=== PATIENT | female | born 1965 | race Caucasian/White ===

== ENCOUNTER 2017-06-11 11:57 | Outpatient (RCR) | payer BC, SELFPAY ==
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
--- NOTE | 2017-06-11 14:03 | HP.OTFCE.D ---
FCE D/C Summary - Discharge JANELLE WILSON was seen for a one time visit for an FCE on 06/11/17 and is discharged.
== END 2017-06-11 19:00 | disposition home or self-care (01) ==
LOC: OT 11:57
PROVIDERS: Family Provider Student in an Organized Health Care Education/Training Program; PCP Student in an Organized Health Care Education/Training Program; Visit Provider Student in an Organized Health Care Education/Training Program
DX: M54.2 Cervicalgia (principal); M25.512 Pain in left shoulder; M25.511 Pain in right shoulder; M79.673 Pain in unspecified foot; G89.29 Other chronic pain
CPT/HCPCS: 97750

== ENCOUNTER → 2020-01-31 | Outpatient (CLI) | payer OTHER, SELFPAY ==
[2020-01-31 14:08] VITALS: BMI 31.8
[2020-02-07 15:06] LABS: HPV APTIMA, High Risk Negative (Negative)
== END | disposition home or self-care (01) ==
LOC: LABSPEC 16:32
PROVIDERS: PCP Student in an Organized Health Care Education/Training Program; Visit Provider Nurse Practitioner Women's Health
DX: Z12.4 Encounter for screening for malignant neoplasm of cervix (principal)
CPT/HCPCS: 87624; 88175; G0145

== ENCOUNTER → 2023-04-14 | Outpatient (CLI) | payer BC, SELFPAY ==
--- OUTSIDE RECORDS SUMMARY | 2023-04-14 17:12 | XMS RPT_ITS | CCD ---
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 little tired after last session.Notes that she feels that the hip exs was helpful. Wearing shoes no problem and just tired with daily activities and ankle still swells Pain: Pain Pain Level: 3 Pain Location: Ankle - Left;Foot - Left Description: Aching Frequency: Intermittent Post Treatment Pain Post Treatment Pain Level: No Change Post Treatment Pain Location: Ankle - Left;Foot - Left OBJECTIVE MEASURES WITH LEVEL OF FUNCTION: Gait Gait Deviations Left Lower Extremity: (hip adduction slightly with decreased stance at times) TREATMENT: Therapeutic Exercise: 4: AROM all planes 5: BAPS standing PWB hemis 2 CW and CCW 2x10 with cues for form and control 6: green rep band strengthening AF/PF/ inv/ever 2x10 7: sidelying left hip abduction 1x5 for hip weakness Skilled Intervention: Patient was educated in proper exercise technique and purpose for exercises. Skilled judgment was provided in selection of appropriate interventions. Correct performance of therapeutic exercises was facilitated with verbal and visual cuing. Neuromuscular Re-Education: 1: balance board for anterior posterior 2x15 and balance with some UE assist 2: alternate step taps to BOSU 2x15 3: step up to blue step 2x10 Skilled Intervention: Skilled judgment used to assess appropriate program for balance and coordination activity. Education in proprioceptive/kinesthetic awareness during dynamic activities. Insured patient safety with use of gait belt Billing Therapeutic Exercise Treatment Minutes: 15 Neuromuscular Re-Education Treatment Minutes: 20 Total Treatment Time Minutes (timed and untimed codes) : 35 Merle Edwards PT documented in this encounter [facility] 12-20-2020 Miscellaneous Notes The following approved medication requests have been transmitted electronically. Signed Prescriptions Disp Refills FLUoxetine 60 mg tab 45 tablet 3 Sig: Take 1.5 tablets by mouth once daily. KISHAN: No Authorizing Provider: ASAD EDWARDS Ordering User: MARYELLEN SUÁREZ APRN.CNP Phone call placed, patient agreeable to Medication change Fluoxetine 90 mg. Mary Orellana LPN Did I discuss this with her at our appointment in November, to increase it? I possibly could have missed this. There is not an 80mg of fluoxetine, but is a 90mg. If she would like to increase to the 90mg, I am fine with sending those in. Maryellen Suárez APRN.CNP Phone call placed to update recent lab results. Patient had concerns new Rx Fluoxetine 60 mg sent to listed pharmacy, patients understanding the Fluoxetine should have been 80 mg , please advise. Mary Orellana LPN documented in this encounter [facility] documented as of this encounter (statuses as of 09/02/2021) [facility] History of Past illness Narrative* Problem Noted Date Resolved Date Neck pain 08/10/2019 08/28/2021 Acute pain of both shoulders 08/10/2019 Iron deficiency 07/08/2012 10/24/2015 documented as of this encounter (statuses as of 09/16/2021) [address] History of Past illness Narrative* Problem Noted Date Resolved Date Neck pain 08/10/2019 08/28/2021 Acute pain of both shoulders 08/10/2019 Iron deficiency 07/08/2012 10/24/2015 documented as of this encounter (statuses as of 09/17/2021) [address]2020 History of Past illness Narrative* Problem Noted Date Resolved Date Neck pain 08/10/2019 08/28/2021 Acute pain of both shoulders 08/10/2019 Iron deficiency 07/08/2012 10/24/2015 documented as of this encounter (statuses as of 10/02/2021) [address]2020 History of Past illness Narrative* Problem Noted Date Resolved Date Neck pain 08/10/2019 08/28/2021 Acute pain of both shoulders 08/10/2019 Iron deficiency 07/08/2012 10/24/2015 documented as of this encounter (statuses as of 10/06/2021) [address]2020 History of Past illness Narrative* Problem Noted Date Resolved Date Neck pain 08/10/2019 08/28/2021 Acute pain of both shoulders 08/10/2019 Iron deficiency 07/08/2012 10/24/2015 documented as of this encounter (statuses as of 10/17/2021) [address]2020 History of Past illness Narrative* Problem Noted Date Resolved Date Neck pain 08/10/2019 08/28/2021 Acute pain of both shoulders 08/10/2019 Iron deficiency 07/08/2012 10/24/2015 documented as of this encounter (statuses as of 10/17/2021) [address]2020 History of Past illness Narrative* Problem Noted Date Resolved Date Neck pain 08/10/2019 08/28/2021 Acute pain of both shoulders 08/10/2019 Iron deficiency 07/08/2012 10/24/2015 documented as of this encounter (statuses as of 10/17/2021) [address]2020 History of Past illness Narrative* Problem Noted Date Resolved Date Neck pain 08/10/2019 08/28/2021 Acute pain of both shoulders 08/10/2019 Iron deficiency 07/08/2012 10/24/2015 documented as of this encounter (statuses as of 10/17/2021) [address]2020 History of Past illness Narrative* Problem Noted Date Resolved Date Neck pain 08/10/2019 08/28/2021 Acute pain of both shoulders 08/10/2019 Iron deficiency 07/08/2012 10/24/2015 documented as of this encounter (statuses as of 10/17/2021) [address]2020 History of Past illness Narrative* Problem Noted Date Resolved Date Neck pain 08/10/2019 08/28/2021 Acute pain of both shoulders 08/10/2019 Iron deficiency 07/08/2012 10/24/2015 documented as of this encounter (statuses as of 11/13/2021) [address]2020 History of Past illness Narrative* Problem Noted Date Resolved Date Neck pain 08/10/2019 08/28/2021 Acute pain of both shoulders 08/10/2019 Iron deficiency 07/08/2012 10/24/2015 documented as of this encounter (statuses as of 12/08/2021) [address]2020 History of Past illness Narrative* Problem Noted Date Resolved Date Neck pain 08/10/2019 08/28/2021 Acute pain of both shoulders 08/10/2019 Iron deficiency 07/08/2012 10/24/2015 documented as of this encounter (statuses as of 12/10/2021) [address]2020 History of Past illness Narrative* Problem Noted Date Resolved Date Neck pain 08/10/2019 08/28/2021 Acute pain of both shoulders 08/10/2019 Iron deficiency 07/08/2012 10/24/2015 documented as of this encounter (statuses as of 12/19/2021) [address]2020 History of Past illness Narrative* Problem Noted Date Resolved Date Neck pain 08/10/2019 08/28/2021 Acute pain of both shoulders 08/10/2019 Iron deficiency 07/08/2012 10/24/2015 documented as of this encounter (statuses as of 01/10/2022) [address]2020 History of Past illness Narrative* Problem Noted Date Resolved Date Neck pain 08/10/2019 08/28/2021 Acute pain of both shoulders 08/10/2019 Iron deficiency 07/08/2012 10/24/2015 documented as of this encounter (statuses as of 01/20/2022) [address]2020 History of Past illness Narrative* Problem Noted Date Resolved Date Neck pain 08/10/2019 08/28/2021 Acute pain of both shoulders 08/10/2019 Iron deficiency 07/08/2012 10/24/2015 documented as of this encounter (statuses as of 01/23/2022) [address]2020 History of Past illness Narrative* Problem Noted Date Resolved Date Neck pain 08/10/2019 08/28/2021 Acute pain of both shoulders 08/10/2019 Iron deficiency 07/08/2012 10/24/2015 documented as of this encounter (statuses as of 01/29/2022) [address]2020 History of Past illness Narrative* Problem Noted Date Resolved Date Neck pain 08/10/2019 08/28/2021 Acute pain of both shoulders 08/10/2019 Iron deficiency 07/08/2012 10/24/2015 documented as of this encounter (statuses as of 02/03/2022) [address]2020 History of Past illness Narrative* Problem Noted Date Resolved Date Neck pain 08/10/2019 08/28/2021 Acute pain of both shoulders 08/10/2019 Iron deficiency 07/08/2012 10/24/2015 documented as of this encounter (statuses as of 02/12/2022) [address]2020 History of Past illness Narrative* Problem Noted Date Resolved Date Neck pain 08/10/2019 08/28/2021 Acute pain of both shoulders 08/10/2019 Iron deficiency 07/08/2012 10/24/2015 documented as of this encounter (statuses as of 02/13/2022) [address]2020 History of Past illness Narrative* Problem Noted Date Resolved Date Neck pain 08/10/2019 08/28/2021 Acute pain of both shoulders 08/10/2019 Iron deficiency 07/08/2012 10/24/2015 documented as of this encounter (statuses as of 03/02/2022) [address]2020 History of Past illness Narrative* Problem Noted Date Resolved Date Neck pain 08/10/2019 08/28/2021 Acute pain of both shoulders 08/10/2019 Iron deficiency 07/08/2012 10/24/2015 documented as of this encounter (statuses as of 03/03/2022) [address]2020 History of Past illness Narrative* Problem Noted Date Resolved Date Neck pain 08/10/2019 08/28/2021 Acute pain of both shoulders 08/10/2019 Iron deficiency 07/08/2012 10/24/2015 documented as of this encounter (statuses as of 03/03/2022) [address]2020 History of Past illness Narrative* Problem Noted Date Resolved Date Neck pain 08/10/2019 08/28/2021 Acute pain of both shoulders 08/10/2019 Iron deficiency 07/08/2012 10/24/2015 documented as of this encounter (statuses as of 03/25/2022) [address]2020 History of Past illness Narrative* Problem Noted Date Resolved Date Neck pain 08/10/2019 08/28/2021 Acute pain of both shoulders 08/10/2019 Iron deficiency 07/08/2012 10/24/2015 documented as of this encounter (statuses as of 05/02/2022) [address] History of Past illness Narrative* Problem Noted Date Resolved Date Neck pain 08/10/2019 08/28/2021 Acute pain of both shoulders 08/10/2019 Iron deficiency 07/08/2012 10/24/2015 documented as of this encounter (statuses as of 05/05/2022) [address]2020 History of Past illness Narrative* Problem Noted Date Resolved Date Neck pain 08/10/2019 08/28/2021 Acute pain of both shoulders 08/10/2019 Iron deficiency 07/08/2012 10/24/2015 documented as of this encounter (statuses as of 05/25/2022) [address]2020 History of Past illness Narrative* Problem Noted Date Resolved Date Neck pain 08/10/2019 08/28/2021 Acute pain of both shoulders 08/10/2019 Iron deficiency 07/08/2012 10/24/2015 documented as of this encounter (statuses as of 05/25/2022) [address]2020 History of Past illness Narrative* Problem Noted Date Resolved Date Neck pain 08/10/2019 08/28/2021 Acute pain of both shoulders 08/10/2019 Iron deficiency 07/08/2012 10/24/2015 documented as of this encounter (statuses as of 05/25/2022) [address]2020 History of Past illness Narrative* Problem Noted Date Resolved Date Neck pain 08/10/2019 08/28/2021 Acute pain of both shoulders 08/10/2019 Iron deficiency 07/08/2012 10/24/2015 documented as of this encounter (statuses as of 06/02/2022) [address]2020 History of Past illness Narrative* Problem Noted Date Resolved Date Neck pain 08/10/2019 08/28/2021 Acute pain of both shoulders 08/10/2019 Iron deficiency 07/08/2012 10/24/2015 documented as of this encounter (statuses as of 06/03/2022) [address]2020 History of Past illness Narrative* Problem Noted Date Resolved Date Neck pain 08/10/2019 08/28/2021 Acute pain of both shoulders 08/10/2019 Iron deficiency 07/08/2012 10/24/2015 documented as of this encounter (statuses as of 06/03/2022) [address]2020 History of Past illness Narrative* Problem Noted Date Resolved Date Neck pain 08/10/2019 08/28/2021 Acute pain of both shoulders 08/10/2019 Iron deficiency 07/08/2012 10/24/2015 documented as of this encounter (statuses as of 06/05/2022) [address]2020 History of Past illness Narrative* Problem Noted Date Resolved Date Neck pain 08/10/2019 08/28/2021 Acute pain of both shoulders 08/10/2019 Iron deficiency 07/08/2012 10/24/2015 documented as of this encounter (statuses as of 06/08/2022) [address]2020 History of Past illness Narrative* Problem Noted Date Resolved Date Neck pain 08/10/2019 08/28/2021 Acute pain of both shoulders 08/10/2019 Iron deficiency 07/08/2012 10/24/2015 documented as of this encounter (statuses as of 06/12/2022) [address]2020 History of Past illness Narrative* Problem Noted Date Resolved Date Neck pain 08/10/2019 08/28/2021 Acute pain of both shoulders 08/10/2019 Iron deficiency 07/08/2012 10/24/2015 documented as of this encounter (statuses as of 07/10/2022) [address]2020 History of Past illness Narrative* Problem Noted Date Resolved Date Neck pain 08/10/2019 08/28/2021 Acute pain of both shoulders 08/10/2019 Iron deficiency 07/08/2012 10/24/2015 documented as of this encounter (statuses as of 07/14/2022) [address]2020 History of Past illness Narrative* Problem Noted Date Resolved Date Neck pain 08/10/2019 08/28/2021 Acute pain of both shoulders 08/10/2019 Iron deficiency 07/08/2012 10/24/2015 documented as of this encounter (statuses as of 08/04/2022) [address]2020 History of Past illness Narrative* Problem Noted Date Resolved Date Neck pain 08/10/2019 08/28/2021 Acute pain of both shoulders 08/10/2019 Iron deficiency 07/08/2012 10/24/2015 documented as of this encounter (statuses as of 08/11/2022) [address]2020 History of Past illness Narrative* Problem Noted Date Resolved Date Neck pain 08/10/2019 08/28/2021 Acute pain of both shoulders 08/10/2019 Iron deficiency 07/08/2012 10/24/2015 documented as of this encounter (statuses as of 09/28/2022) [address]2020 History of Past illness Narrative* Problem Noted Date Resolved Date Neck pain 08/10/2019 08/28/2021 Acute pain of both shoulders 08/10/2019 Iron deficiency 07/08/2012 10/24/2015 documented as of this encounter (statuses as of 10/02/2022) [address]2020 History of Past illness Narrative* Problem Noted Date Diagnosed Date Resolved Date Neck pain 08/10/2019 08/28/2021 Acute pain of both shoulders 08/10/2019 08/28/2021 Iron deficiency 07/08/2012 10/24/2015 documented as of this encounter (statuses as of 10/28/2022) [address]2020 History of Past illness Narrative* Problem Noted Date Diagnosed Date Resolved Date Neck pain 08/10/2019 08/28/2021 Acute pain of both shoulders 08/10/2019 08/28/2021 Iron deficiency 07/08/2012 10/24/2015 documented as of this encounter (statuses as of 11/05/2022) [address]2020 History of Past illness Narrative* Problem Noted Date Diagnosed Date Resolved Date Neck pain 08/10/2019 08/28/2021 Acute pain of both shoulders 08/10/2019 08/28/2021 Iron deficiency 07/08/2012 10/24/2015 documented as of this encounter (statuses as of 11/07/2022) [address]2020 History of Past illness Narrative* Problem Noted Date Diagnosed Date Resolved Date Neck pain 08/10/2019 08/28/2021 Acute pain of both shoulders 08/10/2019 08/28/2021 Iron deficiency 07/08/2012 10/24/2015 documented as of this encounter (statuses as of 11/09/2022) [address]2020 History of Past illness Narrative* Problem Noted Date Diagnosed Date Resolved Date Neck pain 08/10/2019 08/28/2021 Acute pain of both shoulders 08/10/2019 08/28/2021 Iron deficiency 07/08/2012 10/24/2015 documented as of this encounter (statuses as of 11/16/2022) [address]2020 History of Past illness Narrative* Problem Noted Date Diagnosed Date Resolved Date Neck pain 08/10/2019 08/28/2021 Acute pain of both shoulders 08/10/2019 08/28/2021 Iron deficiency 07/08/2012 10/24/2015 documented as of this encounter (statuses as of 11/20/2022) [address]2020 History of Past illness Narrative* Problem Noted Date Diagnosed Date Resolved Date Neck pain 08/10/2019 08/28/2021 Acute pain of both shoulders 08/10/2019 08/28/2021 Iron deficiency 07/08/2012 10/24/2015 documented as of this encounter (statuses as of 01/14/2023) [address]2020 History of Past illness Narrative* Problem Noted Date Diagnosed Date Resolved Date Neck pain 08/10/2019 08/28/2021 Acute pain of both shoulders 08/10/2019 08/28/2021 Iron deficiency 07/08/2012 10/24/2015 documented as of this encounter (statuses as of 01/16/2023) [address]2020 History of Past illness Narrative* Problem Noted Date Diagnosed Date Resolved Date Neck pain 08/10/2019 08/28/2021 Acute pain of both shoulders 08/10/2019 08/28/2021 Iron deficiency 07/08/2012 10/24/2015 documented as of this encounter (statuses as of 01/20/2023) [address]2020 History of Past illness Narrative* Problem Noted Date Diagnosed Date Resolved Date Neck pain 08/10/2019 08/28/2021 Acute pain of both shoulders 08/10/2019 08/28/2021 Iron deficiency 07/08/2012 10/24/2015 documented as of this encounter (statuses as of 01/20/2023) [address]2020 History of Past illness Narrative* Problem Noted Date Diagnosed Date Resolved Date Neck pain 08/10/2019 08/28/2021 Acute pain of both shoulders 08/10/2019 08/28/2021 Iron deficiency 07/08/2012 10/24/2015 documented as of this encounter (statuses as of 01/20/2023) [facility] History of Past illness Narrative* Problem Noted Date Diagnosed Date Resolved Date Neck pain 08/10/2019 08/28/2021 Acute pain of both shoulders 08/10/2019 08/28/2021 Iron deficiency 07/08/2012 10/24/2015 documented as of this encounter (statuses as of 02/13/2023) [facility] History of Past illness Narrative* Problem Noted Date Diagnosed Date Resolved Date Neck pain 08/10/2019 08/28/2021 Acute pain of both shoulders 08/10/2019 08/28/2021 Iron deficiency 07/08/2012 10/24/2015 documented as of this encounter (statuses as of 02/14/2023) [facility] History of Past illness Narrative* Problem Noted Date Diagnosed Date Resolved Date Neck pain 08/10/2019 08/28/2021 Acute pain of both shoulders 08/10/2019 08/28/2021 Iron deficiency 07/08/2012 10/24/2015 documented as of this encounter (statuses as of 03/15/2023) [facility] History of Past illness Narrative* Problem Noted Date Resolved Date Iron deficiency 07/08/2012 10/24/2015 documented as of this encounter (statuses as of 07/07/2021) [facility] History of Past illness Narrative* Problem Noted Date Resolved Date Iron deficiency 07/08/2012 10/24/2015 documented as of this encounter (statuses as of 07/10/2021) [facility] History of Past illness Narrative* Problem Noted Date Resolved Date Iron deficiency 07/08/2012 10/24/2015 documented as of this encounter (statuses as of 07/30/2021) [facility] History of Past illness Narrative* Problem Noted Date Resolved Date Iron deficiency 07/08/2012 10/24/2015 documented as of this encounter (statuses as of 08/13/2021) [facility] Postoperative state- Primary Other postprocedural status Posterior tibial tendon dysfunction (PTTD) of left lower extremity Acquired tight Achilles tendon, left [facility] Diagnosis Abnormal mammogram of right breast [facility]* Diagnosis Adjustment disorder with mixed anxiety and depressed mood Moderate episode of recurrent major depressive disorder (HCC) [facility]* Diagnosis Injury of right ankle, initial encounter- Primary Itching Unspecified pruritic disorder Adjustment disorder with mixed anxiety and depressed mood Moderate episode of recurrent major depressive disorder (HCC) [facility]* Diagnosis Sprain of anterior talofibular ligament of right ankle, initial encounter- Primary Tendonitis, Achilles, right Achilles bursitis or tendinitis [facility]* Diagnosis Moderate episode of recurrent major depressive disorder (HCC) Adjustment disorder with mixed anxiety and depressed mood [facility]* Diagnosis Iron deficiency anemia, unspecified iron deficiency anemia type Migraine without status migrainosus, not intractable, unspecified migraine type [facility]* Diagnosis SPIKE (obstructive sleep apnea) Obstructive sleep apnea (adult) (pediatric) [facility]* Diagnosis Iron deficiency anemia, unspecified iron deficiency anemia type- Primary Moderate episode of recurrent major depressive disorder (HCC) Hyperglycemia Other abnormal glucose Vitamin D insufficiency Unspecified vitamin D deficiency Hyperlipidemia, mixed Mixed hyperlipidemia Screening for thyroid disorder [facility]* Diagnosis URI, acute- Primary Acute upper respiratory infections of unspecified site [facility]* Diagnosis Family history of abdominal aortic aneurysm (AAA) [facility]* Diagnosis Moderate episode of recurrent major depressive disorder (HCC)- Primary KATERIN (generalized anxiety disorder) Generalized anxiety disorder Psychological and behavioral factors associated with disorders or diseases classified elsewhere [facility] Diagnosis Bilateral hand pain- Primary Pain in limb Arthralgia of both hands Family history of rheumatoid arthritis Family history of arthritis [facility] Diagnosis COVID-19 virus infection- Primary [facility] Diagnosis Migraine without status migrainosus, not intractable, unspecified migraine type [facility] Diagnosis Hyperlipidemia, mixed Mixed hyperlipidemia [facility] Diagnosis Invasive ductal carcinoma of breast, female, left (HCC)- Primary [facility]* Diagnosis History of left breast cancer- Primary [facility] Diagnosis Vitamin D insufficiency Unspecified vitamin D deficiency [facility] Diagnosis Migraine without status migrainosus, not intractable, unspecified migraine type [facility] Diagnosis Family history of rheumatoid arthritis Family history of arthritis Bilateral hand pain Pain in limb Arthralgia of both hands [facility]* 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 Malignant neoplasm of left breast in female, estrogen receptor positive, unspecified site of breast (HCC) documented [facility]* Diagnosis Encounter for screening mammogram for malignant neoplasm of breast Other screening mammogram [facility]* Diagnosis History of left breast cancer [facility] Diagnosis URI, acute- Primary Acute upper respiratory infections of unspecified site [facility]* Diagnosis Family history of aortic dissection- Primary Family history of other cardiovascular diseases [facility]* Diagnosis Family history of rheumatoid arthritis Family history of arthritis Bilateral hand pain Pain in limb Arthralgia of both hands [facility] Diagnosis Vitamin D insufficiency Unspecified vitamin D deficiency URI, acute Acute upper respiratory infections of unspecified site [facility]* Diagnosis Sinus problem- Primary Unspecified sinusitis (chronic) documented [facility]* Diagnosis At risk for injury due to administration of medication- Primary [facility]* Diagnosis Viral syndrome- Primary Unspecified viral infection, in conditions classified elsewhere and of unspecified site [facility]* Diagnosis Treatment not available- Primary Procedure not carried out for other reasons [facility]* Diagnosis Posterior tibialis tendinitis of both lower extremities- Primary [facility] Diagnosis Pain Generalized pain [facility]* Diagnosis Pes planus, unspecified laterality- Primary Right foot pain Pain in limb documented in this encounter [facility]* Diagnosis Pain in right foot- Primary Pain in limb documented [facility]* Diagnosis Invasive ductal carcinoma of breast, female, left (HCC)- Primary Pes planus, unspecified laterality Right foot pain Pain in limb documented in this encounter [facility] note* Diagnosis Pain in right foot Pain in limb Pes planus, unspecified laterality Right foot pain Pain in limb documented [facility]* Diagnosis Vaginal elias- Primary Candidiasis of vulva and vagina Family history of rheumatoid arthritis Family history of arthritis Bilateral hand pain Pain in limb Arthralgia of both hands Migraine without status migrainosus, not intractable, unspecified migraine type SPIKE (obstructive sleep apnea) Obstructive sleep apnea (adult) (pediatric) Well adult exam Routine general medical examination at a [facility] care facility Hyperlipidemia, mixed Mixed hyperlipidemia Iron deficiency anemia, unspecified iron deficiency anemia type Hyperglycemia Other abnormal glucose Screening for thyroid disorder Screening for colon cancer Special screening for malignant neoplasms, colon Pes planus, unspecified laterality Right foot pain Pain in limb documented in this encounter [facility] for referral (narrative)* Diagnostic Procedure Only (Routine) - Closed Specialty Diagnoses / Procedures Referred By Elsie goodrich Referred To Contact BR IMAGING Diagnoses Abnormal mammogram of right breast Procedures US BREAST LTD RT US BREAST UNILAT INCL AXILLA LIMITED Maco Anders MD [address] [place] [address] [facility] [address] [place] [id number] Referral ID Status Reason Start Date Expiration Date V isits Requested Visits Authorized [id number] Closed Auto-Generate d Referral 04/21/2021 05/07/2022 1 1 [facility] for referral (narrative)* Diagnostic Procedure Only (Routine) - Closed Specialty Diagnoses / Procedures Referred By Elsie goodrich Referred To Contact XR IMAGING Diagnoses Injury of right ankle, initial encounter Procedures XR ANKLE GENERAL 3V AP/LAT/OBL RIGHT RADEX ANKLE COMPLETE MINIMUM 3 VIEWS Maryellen Suárez APRN.PAID SEARCH MARKETING STRATEGIST [address] [place] [address] Xr Imaging Referral ID Status Reason Start Date Expiration Date V isits Requested Visits Authorized [id number] Closed Auto-Generate d Referral 09/17/2021 10/17/2022 1 1 [facility] for referral (narrative)* Diagnostic Procedure Only (Routine) - Closed Specialty Diagnoses / Procedures Referred By Contac t Referred To Contact US IMAGING Diagnoses Family history of abdominal aortic aneurysm (AAA) Procedures US SCREENING FOR AAA (2017) US ABDOMINAL AORTA REAL TIME SCREEN STUDY AAA Noemí Roa APRN.PAID SEARCH MARKETING STRATEGIST [address] [place] [address] Us Imaging Referral ID Status Reason Start Date Expiration Date V isits Requested Visits Authorized [id number] Closed Auto-Generate d Referral 12/25/2021 01/24/2023 [address] [facility] for referral (narrative)* Diagnostic Procedure Only (Routine) - Closed Specialty Diagnoses / Procedures Referred By Contac t Referred To Contact BR IMAGING Diagnoses Encounter for screening mammogram for malignant neoplasm of breast Procedures ANNETTE SCREENING W CAMI SCREENING DIGITAL BREAST TOMOSYNTHESIS BI SCREENING MAMMOGRAPHY BI 2-VIEW BREAST INC CAD Maco Anders MD [address] [place] [address] [facility] [address] [place] [address] Referral ID Status Reason Start Date Expiration Date V isits Requested Visits Authorized [id number] Closed Auto-Generate d Referral 04/06/2022 12/06/2022 1 1 [facility] for referral (narrative)* Diagnostic Procedure Only (Routine) - Closed Specialty Diagnoses / Procedures Referred By Contac t Referred To Contact XR IMAGING Diagnoses Pain Procedures XR FOOT GENERAL 3V AP/LAT/OBL RIGHT RADEX FOOT COMPLETE MINIMUM 3 VIEWS Wyatt Sommers MD [address] [place] [id number] [place] [address] Referral ID Status Reason Start Date Expiration Date V isits Requested Visits Authorized [id number] Closed Auto-Generate d Referral 01/07/2023 02/06/2024 1 1 * Diagnostic Procedure Only (Routine) - Closed Specialty Diagnoses / Procedures Referred By Contac t Referred To Contact XR IMAGING Diagnoses Pain Procedures XR ANKLE GENERAL 3V AP/LAT/OBL RIGHT RADEX ANKLE COMPLETE MINIMUM 3 VIEWS Wyatt Sommers MD [address] [place] [phone] Xr Imaging [id number] Referral ID Status Reason Start Date Expiration Date V isits Requested Visits Authorized [id number] Closed Auto-Generate d Referral 12/23/2022 01/22/2024 1 1 [facility] for referral (narrative)* Diagnostic Procedure Only (Routine) - Authorized Specialty Diagnoses / Procedures Referred By Contac t Referred To Contact XR IMAGING Diagnoses Pain in right foot Procedures XR FOOT GENERAL 3V AP/LAT/OBL RIGHT RADEX FOOT COMPLETE MINIMUM 3 [place] [address] [place] [address] [place] [address] Referral ID Status Reason Start Date Expiration Date Visits Requested Visits Authorized [id number] Authorized Auto-Generat ed Referral 02/19/2024 1 1 [facility] for referral (narrative)* Diagnostic Procedure Only (Routine) - Closed Specialty Diagnoses / Procedures Referred By Contac t Referred To Contact XR IMAGING Diagnoses Pain in right foot Procedures XR FOOT GENERAL 3V AP/LAT/OBL RIGHT RADEX FOOT COMPLETE MINIMUM 3 VIEWS Gilberto Villeda [address] [place] [address] [place] [address] Referral ID Status Reason Start Date Expiration Date V isits Requested Visits Authorized [id number] Closed Auto-Generate d Referral 03/30/2022 04/29/2023 1 1 [facility] for visit Narrative* Diagnostic Procedure Only (Routine) - Closed Specialty Diagnoses / Procedures Referred By Contac t Referred To Contact BR IMAGING Diagnoses Abnormal mammogram of right breast Procedures US BREAST LTD RT US BREAST UNILAT INCL AXILLA LIMITED Maco Anders MD [address] [place] [address] [facility] [address] [place] [address] Referral ID Status Reason Start Date Expiration Date V isits Requested Visits Authorized [id number] Closed Auto-Generate d Referral 04/21/2021 05/07/2022 1 1 [facility] for visit Narrative* Diagnostic Procedure Only (Routine) - Closed Specialty Diagnoses / Procedures Referred By Contac t Referred To Contact XR IMAGING Diagnoses Pain in right foot Procedures XR FOOT GENERAL 3V AP/LAT/OBL RIGHT RADEX FOOT COMPLETE MINIMUM 3 VIEWS Gilberto Villeda [address] [place] [address] [place] [address] Referral ID Status Reason Start Date Expiration Date V isits Requested Visits Authorized [id number] Closed Auto-Generate d Referral 03/30/2022 04/29/2023 1 1 [facility] Summary Purpose Family History No Family History Records FoundNo Family History Records FoundNo Family History Records FoundNo Family History Records FoundNo Family History Records FoundNo Family History Records Found Advance Directives No Advanced Directives Records FoundDocuments on File Type Date 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 Advance Directive(s) 12/04/2020 11:06 AM Advance Directive(s) 02/26/2020 4:31 PM Documents on File Type Date Recorded 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 Advance Directive(s) 12/04/2020 11:06 AM Advance Directive(s) 02/26/2020 4:31 PM Reason for Referral Specialty Diagnoses / Procedures Referred By Elsie goodrich Referred To Contact [facility] Diagnoses Sprain of anterior talofibular ligament of right ankle, initial encounter Tendonitis, Achilles, right Procedures CONSULT TO PHYSICAL THERAPY PHYSICAL THERAPY EVALUATION HIGH COMPLEX 45 MINS Gilberto Villeda [address] [place] [address] [facility] [address] [address] Referral ID Status Reason Start Date Expiration Date Visits Requested Visits Authorized [id number] Pending Review Auto-Generat ed Referral 10/02/2021 10/02/2022 1 1 Specialty Diagnoses / Procedures Referred By Elsie goodrich Referred To Contact Rheumatology Diagnoses Family history of rheumatoid arthritis Bilateral hand pain Arthralgia of both hands Procedures CONSULT TO RHEUM/IMMUN DISEASE OFFICE/OUTPATIENT [facility] 60-74 MINUTES Maryellen Suárez APRN.PAID SEARCH MARKETING STRATEGIST [address] [place] [address] Referral ID Status Reason Start Date Expiration Date Visits Requested Visits Authorized [id number] Authorized PCP Requested Referral 02/13/2022 02/13/2023 1 1 Specialty Diagnoses / Procedures Referred By Elsie goodrich Referred To Contact XR IMAGING Diagnoses Family history of rheumatoid arthritis Bilateral hand pain Arthralgia of both hands Procedures XR HAND GENERAL 3V PA/LAT/OBL BILATERAL RADEX HAND MINIMUM 3 VIEWS Maryellen Suárez, PACKING FLOOR WORKER.PAID SEARCH MARKETING STRATEGIST [address] [place] [address] Xr Imaging Referral ID Status Reason Start Date Expiration Date V isits Requested Visits Authorized [id number] Closed Auto-Generate d Referral 02/13/2022 03/15/2023 1 1 Specialty Diagnoses / Procedures Referred By Elsie goodrich Referred To Contact Diagnoses History of left breast cancer Procedures CONSULT TO MEDICAL GENETICS - CANCER MEDICAL GENETICS COUNSELING EACH 30 MINUTES Donna Trejo, PACKING FLOOR WORKER.PAID SEARCH MARKETING STRATEGIST [address] [place] [address] [facility] [place] [address] Referral ID Status Reason Start Date Expiration Date Visits Requested Visits Authorized [id number] Pending Review PCP Requested Referral Auto-Generate d Referral 05/05/2022 05/05/2023 1 1 Specialty Diagnoses / Procedures Referred By Contac t Referred To Contact Diagnoses Family history of aortic dissection Procedures CONSULT TO MEDICAL GENETICS - CARDIOVASCULAR OFFICE/OUTPATIENT [facility] 60-74 MINUTES MEDICAL GENETICS COUNSELING EACH 30 MINUTES Rola Tamayo MD, PhD [address] [place] [address] [facility] [place] [address] Referral ID Status Reason Start Date Expiration Date Visits Requested Visits Authorized [id number] Pending Review PCP Requested Referral Auto-Generate d Referral 07/10/2022 07/10/2023 1 1 Specialty Diagnoses / Procedures Referred By Elsie t Referred To Contact CT IMAGING Diagnoses Right foot pain Procedures CONEBEAM CT LOWER EXTREMITY RIGHT (WEIGHT BEARING) CT LOWER EXTREMITY W/O CONTRAST [place]domo [place] [id number] [place] [address] [facility] [place] [address] Referral ID Status Reason Start Date Expiration Date Visits Requested Visits Authorized [id number] Pending Review Auto-Generat ed Referral 02/18/2024 1 1 Specialty Diagnoses / Procedures Referred By Elsie t Referred To Contact Physical Therapy Diagnoses Pes planus, unspecified laterality Procedures CONSULT [place] [address] [place] [address] Referral ID Status Reason Start Date Expiration Date V isits Requested Visits Authorized [id number] Pending Review 01/19/2023 04/19/2023 1 1 Additional Source Comments INFORMATION SOURCE (unrecogn ized section and content) DATE CREATED AUTHOR AUTHOR'S ORGANIZ ATION 07/31/2021 [facility] [place] [facility] DATE CREATED AUTHOR AUTHOR'S ORGANIZ ATION 03/01/2022 [facility] DATE CREATED AUTHOR AUTHOR'S ORGANIZ ATION 01/21/2023 [facility] DATE CREATED AUTHOR AUTHOR'S ORGANIZ ATION 04/08/2023 [facility] DATE CREATED AUTHOR AUTHOR'S ORGANIZ ATION 04/14/2023 [facility] Source Comments (unrecognize d section and content) In the event this informatio n is protected by the Federal Confidentiality of Alcohol and Drug Abuse Patient Records regulations: The Federal rules restrict any use of the information to criminally investigate or prosecute any alcohol or drug abuse patient.[facility] the event this information is protected by the Federal Confidentiality of Alcohol and Drug Abuse Patient Records regulations: The Federal rules restrict any use of the information to criminally investigate or prosecute any alcohol or drug abuse patient.[facility] the event this information is protected by the Federal Confidentiality of Alcohol and Drug Abuse Patient Records regulations: The Federal rules restrict any use of the information to criminally investigate or prosecute any alcohol or drug abuse patient.[facility] the event this information is protected by the Federal Confidentiality of Alcohol and Drug Abuse Patient Records regulations: The Federal rules restrict any use of the information to criminally investigate or prosecute any alcohol or drug abuse patient.[facility] the event this information is protected by the Federal Confidentiality of Alcohol and Drug Abuse Patient Records regulations: The Federal rules restrict any use of the information to criminally investigate or prosecute any alcohol or drug abuse patient.[facility] the event this information is protected by the Federal Confidentiality of Alcohol and Drug Abuse Patient Records regulations: The Federal rules restrict any use of the information to criminally investigate or prosecute any alcohol or drug abuse patient.[facility] the event this information is protected by the Federal Confidentiality of Alcohol and Drug Abuse Patient Records regulations: The Federal rules restrict any use of the information to criminally investigate or prosecute any alcohol or drug abuse patient.[facility] the event this information is protected by the Federal Confidentiality of Alcohol and Drug Abuse Patient Records regulations: The Federal rules restrict any use of the information to criminally investigate or prosecute any alcohol or drug abuse patient.[facility] the event this information is protected by the Federal Confidentiality of Alcohol and Drug Abuse Patient Records regulations: The Federal rules restrict any use of the information to criminally investigate or prosecute any alcohol or drug abuse patient.[facility] the event this information is protected by the Federal Confidentiality of Alcohol and Drug Abuse Patient Records regulations: The Federal rules restrict any use of the information to criminally investigate or prosecute any alcohol or drug abuse patient.[facility] the event this information is protected by the Federal Confidentiality of Alcohol and Drug Abuse Patient Records regulations: The Federal rules restrict any use of the information to criminally investigate or prosecute any alcohol or drug abuse patient.[facility] the event this information is protected by the Federal Confidentiality of Alcohol and Drug Abuse Patient Records regulations: The Federal rules restrict any use of the information to criminally investigate or prosecute any alcohol or drug abuse patient.[facility] the event this information is protected by the Federal Confidentiality of Alcohol and Drug Abuse Patient Records regulations: The Federal rules restrict any use of the information to criminally investigate or prosecute any alcohol or drug abuse patient.[facility] the event this information is protected by the Federal Confidentiality of Alcohol and Drug Abuse Patient Records regulations: The Federal rules restrict any use of the information to criminally investigate or prosecute any alcohol or drug abuse patient.[facility] the event this information is protected by the Federal Confidentiality of Alcohol and Drug Abuse Patient Records regulations: The Federal rules restrict any use of the information to criminally investigate or prosecute any alcohol or drug abuse patient.[facility] the event this information is protected by the Federal Confidentiality of Alcohol and Drug Abuse Patient Records regulations: The Federal rules restrict any use of the information to criminally investigate or prosecute any alcohol or drug abuse patient.[facility] the event this information is protected by the Federal Confidentiality of Alcohol and Drug Abuse Patient Records regulations: The Federal rules restrict any use of the information to criminally investigate or prosecute any alcohol or drug abuse patient.[facility] the event this information is protected by the Federal Confidentiality of Alcohol and Drug Abuse Patient Records regulations: The Federal rules restrict any use of the information to criminally investigate or prosecute any alcohol or drug abuse patient.[facility] the event this information is protected by the Federal Confidentiality of Alcohol and Drug Abuse Patient Records regulations: The Federal rules restrict any use of the information to criminally investigate or prosecute any alcohol or drug abuse patient.[facility] the event this information is protected by the Federal Confidentiality of Alcohol and Drug Abuse Patient Records regulations: The Federal rules restrict any use of the information to criminally investigate or prosecute any alcohol or drug abuse patient.[facility] the event this information is protected by the Federal Confidentiality of Alcohol and Drug Abuse Patient Records regulations: The Federal rules restrict any use of the information to criminally investigate or prosecute any alcohol or drug abuse patient.[facility] the event this information is protected by the Federal Confidentiality of Alcohol and Drug Abuse Patient Records regulations: The Federal rules restrict any use of the information to criminally investigate or prosecute any alcohol or drug abuse patient.[facility] the event this information is protected by the Federal Confidentiality of Alcohol and Drug Abuse Patient Records regulations: The Federal rules restrict any use of the information to criminally investigate or prosecute any alcohol or drug abuse patient.[facility] the event this information is protected by the Federal Confidentiality of Alcohol and Drug Abuse Patient Records regulations: The Federal rules restrict any use of the information to criminally investigate or prosecute any alcohol or drug abuse patient.[facility] the event this information is protected by the Federal Confidentiality of Alcohol and Drug Abuse Patient Records regulations: The Federal rules restrict any use of the information to criminally investigate or prosecute any alcohol or drug abuse patient.[facility] the event this information is protected by the Federal Confidentiality of Alcohol and Drug Abuse Patient Records regulations: The Federal rules restrict any use of the information to criminally investigate or prosecute any alcohol or drug abuse patient.[facility] the event this information is protected by the Federal Confidentiality of Alcohol and Drug Abuse Patient Records regulations: The Federal rules restrict any use of the information to criminally investigate or prosecute any alcohol or drug abuse patient.[facility] the event this information is protected by the Federal Confidentiality of Alcohol and Drug Abuse Patient Records regulations: The Federal rules restrict any use of the information to criminally investigate or prosecute any alcohol or drug abuse patient.[facility] the event this information is protected by the Federal Confidentiality of Alcohol and Drug Abuse Patient Records regulations: The Federal rules restrict any use of the information to criminally investigate or prosecute any alcohol or drug abuse patient.[facility] the event this information is protected by the Federal Confidentiality of Alcohol and Drug Abuse Patient Records regulations: The Federal rules restrict any use of the information to criminally investigate or prosecute any alcohol or drug abuse patient.[facility] HospitalIn the event this information is protected by the Federal Confidentiality of Alcohol and Drug Abuse Patient Records regulations: The Federal rules restrict any use of the information to criminally investigate or prosecute any alcohol or drug abuse patient.[facility] HospitalIn the event this information is protected by the Federal Confidentiality of Alcohol and Drug Abuse Patient Records regulations: The Federal rules restrict any use of the information to criminally investigate or prosecute any alcohol or drug abuse patient.[facility] HospitalIn the event this information is protected by the Federal Confidentiality of Alcohol and Drug Abuse Patient Records regulations: The Federal rules restrict any use of the information to criminally investigate or prosecute any alcohol or drug abuse patient.[facility] HospitalIn the event this information is protected by the Federal Confidentiality of Alcohol and Drug Abuse Patient Records regulations: The Federal rules restrict any use of the information to criminally investigate or prosecute any alcohol or drug abuse patient.[facility] HospitalIn the event this information is protected by the Federal Confidentiality of Alcohol and Drug Abuse Patient Records regulations: The Federal rules restrict any use of the information to criminally investigate or prosecute any alcohol or drug abuse patient.[facility] HospitalIn the event this information is protected by the Federal Confidentiality of Alcohol and Drug Abuse Patient Records regulations: The Federal rules restrict any use of the information to criminally investigate or prosecute any alcohol or drug abuse patient.[facility] HospitalIn the event this information is protected by the Federal Confidentiality of Alcohol and Drug Abuse Patient Records regulations: The Federal rules restrict any use of the information to criminally investigate or prosecute any alcohol or drug abuse patient.[facility] HospitalIn the event this information is protected by the Federal Confidentiality of Alcohol and Drug Abuse Patient Records regulations: The Federal rules restrict any use of the information to criminally investigate or prosecute any alcohol or drug abuse patient.[facility] HospitalIn the event this information is protected by the Federal Confidentiality of Alcohol and Drug Abuse Patient Records regulations: The Federal rules restrict any use of the information to criminally investigate or prosecute any alcohol or drug abuse patient.[facility] HospitalIn the event this information is protected by the Federal Confidentiality of Alcohol and Drug Abuse Patient Records regulations: The Federal rules restrict any use of the information to criminally investigate or prosecute any alcohol or drug abuse patient.[facility] HospitalIn the event this information is protected by the Federal Confidentiality of Alcohol and Drug Abuse Patient Records regulations: The Federal rules restrict any use of the information to criminally investigate or prosecute any alcohol or drug abuse patient.[facility] HospitalIn the event this information is protected by the Federal Confidentiality of Alcohol and Drug Abuse Patient Records regulations: The Federal rules restrict any use of the information to criminally investigate or prosecute any alcohol or drug abuse patient.[facility] HospitalIn the event this information is protected by the Federal Confidentiality of Alcohol and Drug Abuse Patient Records regulations: The Federal rules restrict any use of the information to criminally investigate or prosecute any alcohol or drug abuse patient.[facility] HospitalIn the event this information is protected by the Federal Confidentiality of Alcohol and Drug Abuse Patient Records regulations: The Federal rules restrict any use of the information to criminally investigate or prosecute any alcohol or drug abuse patient.[facility] HospitalIn the event this information is protected by the Federal Confidentiality of Alcohol and Drug Abuse Patient Records regulations: The Federal rules restrict any use of the information to criminally investigate or prosecute any alcohol or drug abuse patient.[facility] HospitalIn the event this information is protected by the Federal Confidentiality of Alcohol and Drug Abuse Patient Records regulations: The Federal rules restrict any use of the information to criminally investigate or prosecute any alcohol or drug abuse patient.[facility] HospitalIn the event this information is protected by the Federal Confidentiality of Alcohol and Drug Abuse Patient Records regulations: The Federal rules restrict any use of the information to criminally investigate or prosecute any alcohol or drug abuse patient.[facility] HospitalIn the event this information is protected by the Federal Confidentiality of Alcohol and Drug Abuse Patient Records regulations: The Federal rules restrict any use of the information to criminally investigate or prosecute any alcohol or drug abuse patient.[facility] HospitalIn the event this information is protected by the Federal Confidentiality of Alcohol and Drug Abuse Patient Records regulations: The Federal rules restrict any use of the information to criminally investigate or prosecute any alcohol or drug abuse patient.[facility] HospitalIn the event this information is protected by the Federal Confidentiality of Alcohol and Drug Abuse Patient Records regulations: The Federal rules restrict any use of the information to criminally investigate or prosecute any alcohol or drug abuse patient.[facility] HospitalIn the event this information is protected by the Federal Confidentiality of Alcohol and Drug Abuse Patient Records regulations: The Federal rules restrict any use of the information to criminally investigate or prosecute any alcohol or drug abuse patient.[facility] HospitalIn the event this information is protected by the Federal Confidentiality of Alcohol and Drug Abuse Patient Records regulations: The Federal rules restrict any use of the information to criminally investigate or prosecute any alcohol or drug abuse patient.[facility] HospitalIn the event this information is protected by the Federal Confidentiality of Alcohol and Drug Abuse Patient Records regulations: The Federal rules restrict any use of the information to criminally investigate or prosecute any alcohol or drug abuse patient.[facility] HospitalIn the event this information is protected by the Federal Confidentiality of Alcohol and Drug Abuse Patient Records regulations: The Federal rules restrict any use of the information to criminally investigate or prosecute any alcohol or drug abuse patient.[facility] HospitalIn the event this information is protected by the Federal Confidentiality of Alcohol and Drug Abuse Patient Records regulations: The Federal rules restrict any use of the information to criminally investigate or prosecute any alcohol or drug abuse patient.[facility] HospitalIn the event this information is protected by the Federal Confidentiality of Alcohol and Drug Abuse Patient Records regulations: The Federal rules restrict any use of the information to criminally investigate or prosecute any alcohol or drug abuse patient.[facility] HospitalIn the event this information is protected by the Federal Confidentiality of Alcohol and Drug Abuse Patient Records regulations: The Federal rules restrict any use of the information to criminally investigate or prosecute any alcohol or drug abuse patient.[facility] HospitalIn the event this information is protected by the Federal Confidentiality of Alcohol and Drug Abuse Patient Records regulations: The Federal rules restrict any use of the information to criminally investigate or prosecute any alcohol or drug abuse patient.[facility] HospitalIn the event this information is protected by the Federal Confidentiality of Alcohol and Drug Abuse Patient Records regulations: The Federal rules restrict any use of the information to criminally investigate or prosecute any alcohol or drug abuse patient.[facility] HospitalIn the event this information is protected by the Federal Confidentiality of Alcohol and Drug Abuse Patient Records regulations: The Federal rules restrict any use of the information to criminally investigate or prosecute any alcohol or drug abuse patient.[facility] HospitalIn the event this information is protected by the Federal Confidentiality of Alcohol and Drug Abuse Patient Records regulations: The Federal rules restrict any use of the information to criminally investigate or prosecute any alcohol or drug abuse patient.[facility] HospitalIn the event this information is protected by the Federal Confidentiality of Alcohol and Drug Abuse Patient Records regulations: The Federal rules restrict any use of the information to criminally investigate or prosecute any alcohol or drug abuse patient.[facility] Care Teams (unrecognized sec tion and content) Visual Coordinator Relationship Specialty Start Date End Date Asad Edwards DO [address] [place] [address] PCP - General [facility] Practice 07/12/12 Cyn Gee MD, [address] [place] [address] Physician Radiation Oncology 03/20/20 Gilberto Hollins MD [address] [place], [place] [id number] Hematology/Oncology 05/28/20 [place] [address] [place] [address] Specialty News Copy Editor Hematology/Oncology 05/28/20 Visual Coordinator Relationship Specialty Start Date End Date Asad Edwards DO [address] [place] [address] PCP - General [facility] Practice 07/12/12 Cyn Gee MD, [address] [place] [address] Physician Radiation Oncology 03/20/20 Gilberto Hollins MD [address] [place], [place] [id number] Hematology/Oncology 05/28/20 [place] [address] [place] [address] Specialty News Copy Editor Hematology/Oncology 05/28/20 Visual Coordinator Relationship Specialty Start Date End Date Asad Edwards DO [address] [place] [address] PCP - General Family Practice 07/12/12 Cyn Gee MD, [address] [place] [address] Physician Radiation Oncology 03/20/20 Gilberto Hollins MD [address] [place] [address] Hematology/Oncology 05/28/20 [place] [address] [place] [address] Specialty News Copy Editor Hematology/Oncology 05/28/20 Visual Coordinator Relationship Specialty Start Date End Date Asad Edwards, DO [address] [place] [address] PCP - General Family Practice 07/12/12 Cyn Gee MD, [address] [place] [address] Physician Radiation Oncology 03/20/20 Gilberto Hollins MD [address] [place] [address] Hematology/Oncology 05/28/20 Arianne Wright, [address] [address] [place] [address] Specialty News Copy Editor Hematology/Oncology 05/28/20 Visual Coordinator Relationship Specialty Start Date End Date Asad Edwards, DO [address] [place] [address] PCP - General Family Practice 07/12/12 Cyn Gee MD, [address] [place] [address] Physician Radiation Oncology 03/20/20 Gilberto Hollins MD [address] [place] [address] Hematology/Oncology 05/28/20 [place] [address] [place] [address] Specialty News Copy Editor Hematology/Oncology 05/28/20 Visual Coordinator Relationship Specialty Start Date End Date Asad Edwards, DO [address] [place] [address] PCP - General Family Practice 07/12/12 Cyn Gee MD, [address] [place] [address] Physician Radiation Oncology 03/20/20 Gilberto Hollins MD [address] [place] [address] Hematology/Oncology 05/28/20 [place] [address] [place] [address] Specialty News Copy Editor Hematology/Oncology 05/28/20 Visual Coordinator Relationship Specialty Start Date End Date Asad Edwards, DO [address] [place] [address] PCP - General Family Practice 07/12/12 Cyn Gee MD, [address] [place] [address] Physician Radiation Oncology 03/20/20 Gilberto Hollins MD [address] [place] [address] Hematology/Oncology 05/28/20 [place] [address] [place] [address] Specialty News Copy Editor Hematology/Oncology 05/28/20 Visual Coordinator Relationship Specialty Start Date End Date Asad Edwards, DO [address] [place] [address] PCP - General Family Practice 07/12/12 Cyn Gee MD, [address] [facility] [place] [address] Physician Radiation Oncology 03/20/20 Gilberto Hollins MD [address], [place] [id number] Hematology/Oncology 05/28/20 [place] [address] [place] [address] Specialty News Copy Editor Hematology/Oncology 05/28/20 Visual Coordinator Relationship Specialty Start Date End Date Asad Edwards, DO [address] [place] [address] PCP - General Family Practice 07/12/12 Cyn Gee MD, [address] [place] [address] Physician Radiation Oncology 03/20/20 Gilberto Hollins MD [address] [place] [address] Hematology/Oncology 05/28/20 Arianne Wright, ADRIANE [address] [place] [address] Specialty News Copy Editor Hematology/Oncology 05/28/20 Visual Coordinator Relationship Specialty Start Date End Date Asad Edwards, DO [address] [place] [address] PCP - General Family Practice 07/12/12 Cyn Gee MD, [address] [facility] [place] [address] Physician Radiation Oncology 03/20/20 Gilberto Hollins MD [address], [place] [id number] Hematology/Oncology 05/28/20 [place] [address] [place] [address] Specialty News Copy Editor Hematology/Oncology 05/28/20 Visual Coordinator Relationship Specialty Start Date End Date Asad Edwarsd, DO [address] [place] [address] PCP - General Family Practice 07/12/12 Cyn Gee MD, [address] [place] [address] Physician Radiation Oncology 03/20/20 Gilberto Hollins MD [address] [place], [place] [id number] Hematology/Oncology 05/28/20 [place] [address] [place] [address] Specialty News Copy Editor Hematology/Oncology 05/28/20 Visual Coordinator Relationship Specialty Start Date End Date Asad Edwards, DO [address] [place] [address] PCP - General Family Practice 07/12/12 Cyn Gee MD, [address] [place] [address] Physician Radiation Oncology 03/20/20 Gilberto Hollins MD [address] [place] [address] Hematology/Oncology 05/28/20 Arianne Wright, [address]ANE [address] [place] [address] Specialty News Copy Editor Hematology/Oncology 05/28/20 Visual Coordinator Relationship Specialty Start Date End Date Asad Edwards, DO [address] [place] [address] PCP - General Family Practice 07/12/12 Cyn Gee MD, [address] [facility] [place] [address] Physician Radiation Oncology 03/20/20 Gilberto Hollins MD [address] [place] [address] Hematology/Oncology 05/28/20 Arianne Wright, ADRIANE [address] [place] [address] Specialty News Copy Editor Hematology/Oncology 05/28/20 Visual Coordinator Relationship Specialty Start Date End Date Asad Edwards, DO [address] [place] [address] PCP - General Family Practice 07/12/12 Cyn Gee MD, [address] [place] [address] Physician Radiation Oncology 03/20/20 Gilberto Hollins MD [address] [place] [address] Hematology/Oncology 05/28/20 [place] [address] [place] [address] Specialty News Copy Editor Hematology/Oncology 05/28/20 Visual Coordinator Relationship Specialty Start Date End Date Asad Edwards, DO [address] [place] [address] PCP - General Family Medicine 07/12/12 Cyn Gee MD, [address] [facility] [place] [address] Physician Radiation Oncology 03/20/20 Gilberto Hollins MD [address] [place] [address] Hematology/Oncology 05/28/20 [place] [address] [place] [address] Specialty News Copy Editor Hematology/Oncology 05/28/20 Visual Coordinator Relationship Specialty Start Date End Date Asad Edwards, DO [address] [facility] [place] [address] PCP - General Family Medicine 07/12/12 Cyn Gee MD, [address] [facility] [place] [address] Physician Radiation Oncology 03/20/20 Gilberto Hollins MD [address] [place], [place] [id number] Hematology/Oncology 05/28/20 [place] [address] [place] [address] Specialty News Copy Editor Hematology/Oncology 05/28/20 Visual Coordinator Relationship Specialty Start Date End Date Asad Edwards, DO [address] [facility] [place] [address] PCP - General Family Medicine 07/12/12 yCn Gee MD, [address] [place] [address] Physician Radiation Oncology 03/20/20 Gilberto Hollins MD [address] [place] [address] Hematology/Oncology 05/28/20 Arianne Wright, ADRI[address] [address] [place] [address] Specialty News Copy Editor Hematology/Oncology 05/28/20 Visual Coordinator Relationship Specialty Start Date End Date Asad Edwards, DO [address] [facility] [place] [address] PCP - General Family Medicine 07/12/12 Cyn Gee MD, [address] [place] [address] Physician Radiation Oncology 03/20/20 Gilberto Hollins MD [address] [place] [address] Hematology/Oncology 05/28/20 [place] [address] [place] [address] Specialty News Copy Editor Hematology/Oncology 05/28/20 Visual Coordinator Relationship Specialty Start Date End Date Asad Edwards, DO [address] [place] [address] PCP - General Family Medicine 07/12/12 Cyn Gee MD, [address] [place] [address] Physician Radiation Oncology 03/20/20 Gilberto Hollins MD [address] [place] [address] Hematology/Oncology 05/28/20 [place] [address] [place] [address] Specialty News Copy Editor Hematology/Oncology 05/28/20 Visual Coordinator Relationship Specialty Start Date End Date Asad Edwards, DO [address] [place] [address] PCP - General Family Medicine 07/12/12 Cny Gee MD, [address] [place] [address] Physician Radiation Oncology 03/20/20 Gilberto Hollins MD [address] [place], [place] [address] Hematology/Oncology 05/28/20 [place] [address] [place] [address] Specialty News Copy Editor Hematology/Oncology 05/28/20 Visual Coordinator Relationship Specialty Start Date End Date Asad Edwards, DO [address] [facility] [place] [address] PCP - General Family Medicine 07/12/12 Cyn Gee MD, [address] [place] [address] Physician Radiation Oncology 03/20/20 Gilberto Hollins MD [address] [place], [place] [address] Hematology/Oncology 05/28/20 [place] [address] [place], [place] [id number] Specialty News Copy Editor Hematology/Oncology 05/28/20 Visual Coordinator Relationship Specialty Start Date End Date Asad Edwards, DO [address] [place] [address] PCP - General Family Medicine 07/12/12 Cyn Gee MD, [address] [place] [address] Physician Radiation Oncology 03/20/20 Gilberto Hollins MD [address] [place] [address] Hematology/Oncology 05/28/20 [place] [address] [place] [address] Specialty News Copy Editor Hematology/Oncology 05/28/20 Visual Coordinator Relationship Specialty Start Date End Date Asad Edwards, DO [address] [facility] [place] [address] PCP - General Family Medicine 07/12/12 Cyn Gee MD, [address] [place] [address] Physician Radiation Oncology 03/20/20 Gilberto Hollins MD [address] [place], [place] [id number] Hematology/Oncology 05/28/20 [place] [address] [place] [address] Specialty News Copy Editor Hematology/Oncology 05/28/20 Visual Coordinator Relationship Specialty Start Date End Date Asad Edwards, DO [address] [place] [address] PCP - General Family Medicine 07/12/12 Cyn Gee MD, [address] [place] [address] Physician Radiation Oncology 03/20/20 Gilberto Hollins MD [address] [place], [place] [address] Hematology/Oncology 05/28/20 [place] [address] [place] [address] Specialty News Copy Editor Hematology/Oncology 05/28/20 Visual Coordinator Relationship Specialty Start Date End Date Asda Edwards, DO [address] [place] [address] PCP - General Family Medicine 07/12/12 Cyn Gee MD, [address] [place] [address] Physician Radiation Oncology 03/20/20 Gilberto Hollins MD [address] [place], [place] [address] Hematology/Oncology 05/28/20 [place] [address] [place] [address] Specialty News Copy Editor Hematology/Oncology 05/28/20 Visual Coordinator Relationship Specialty Start Date End Date Asad Edwards, DO [address] [facility] [place] [address] PCP - General Family Medicine 07/12/12 Cyn Gee MD, [address] [place] [address] Physician Radiation Oncology 03/20/20 Gilberto Hollins MD [address] [place] [address] Hematology/Oncology 05/28/20 [place] [address] [place] [address] Specialty News Copy Editor Hematology/Oncology 05/28/20 Visual Coordinator Relationship Specialty Start Date End Date Asad Edwards, DO [address] [place] [address] PCP - General Family Medicine 07/12/12 Cyn Gee MD, [address] [place] [address] Physician Radiation Oncology 03/20/20 Gilberto Hollins MD [address] [place] [address] Hematology/Oncology 05/28/20 [place] [address] [place] [address] Specialty News Copy Editor Hematology/Oncology 05/28/20 Visual Coordinator Relationship Specialty Start Date End Date Asad Edwards, DO [address] [place] [address] PCP - General Family Medicine 07/12/12 Cyn Gee MD, [address] [place] [address] Physician Radiation Oncology 03/20/20 Gilberto Hollins MD [address] [place] [address] Hematology/Oncology 05/28/20 [place] [address] [place] [address] Specialty News Copy Editor Hematology/Oncology 05/28/20 Visual Coordinator Relationship Specialty Start Date End Date Asad Edwards, DO [address] [place] [address] PCP - General Family Medicine 07/12/12 Cyn Gee MD, [address] [place] [address] Physician Radiation Oncology 03/20/20 Gilberto Hollins MD [address] [place] [address] Hematology/Oncology 05/28/20 [place] [address] [place] [address] Specialty News Copy Editor Hematology/Oncology 05/28/20 Visual Coordinator Relationship Specialty Start Date End Date Asad Edwards, DO [address] [place] [address] PCP - General Family Medicine 07/12/12 Cyn Gee MD, [address] [place] [address] Physician Radiation Oncology 03/20/20 Gilberto Hollins MD [address] [place] [address] Hematology/Oncology 05/28/20 [place] [address] [place] [address] Specialty News Copy Editor Hematology/Oncology 05/28/20 Visual Coordinator Relationship Specialty Start Date End Date Asad Edwards, DO [address] [place] [address] PCP - General Family Medicine 07/12/12 Cyn Gee MD, [address] [facility] [place] [address] Physician Radiation Oncology 03/20/20 Gilberto Hollins MD [address] [place], [place] [id number] Hematology/Oncology 05/28/20 [place] [address] [place] [address] Specialty News Copy Editor Hematology/Oncology 05/28/20 Visual Coordinator Relationship Specialty Start Date End Date Asad Edwards DO [address] [place] [address] PCP - General Family Medicine 07/12/12 Cyn Gee MD, MD [address] [place] [address] Physician Radiation Oncology 03/20/20 Gilberto Hollins MD [address] [place] [address] Hematology/Oncology 05/28/20 Arianne Wright, [address]RIANE [address] [place] [address] Specialty News Copy Editor Hematology/Oncology 05/28/20 Visual Coordinator Relationship Specialty Start Date End Date Asad Edwards DO [address] [place] [address] PCP - General Family Medicine 07/12/12 Cyn Gee MD, [address] [place] [address] Physician Radiation Oncology 03/20/20 Gilberto Hollins MD [address] [place] [address] Hematology/Oncology 05/28/20 [place] [address] [place] [address] Specialty News Copy Editor Hematology/Oncology 05/28/20 Visual Coordinator Relationship Specialty Start Date End Date Asad Edwards DO [address] [place] [address] PCP - General Family Medicine 07/12/12 Cyn Gee MD, MD [address] [place] [address] Physician Radiation Oncology 03/20/20 [place] [address] [place] [address] Hematology/Oncology 05/28/20 [place] [address] [place] [address] Specialty News Copy Editor Hematology/Oncology 05/28/20 Visual Coordinator Relationship Specialty Start Date End Date Asad Edwards DO [address] [place] [address] PCP - General Family Medicine 07/12/12 Cyn Gee MD, MD [address] [place] [address] Physician Radiation Oncology 03/20/20 Gilberto Hollins MD [address] [place] [address] Hematology/Oncology 05/28/20 [place] [address] [place] [address] Specialty News Copy Editor Hematology/Oncology 05/28/20 Visual Coordinator Relationship Specialty Start Date End Date Asad Edwards DO [address] [place] [address] PCP - General Family Medicine 07/12/12 Cyn Gee MD, [address] [place] [address] Physician Radiation Oncology 03/20/20 Gilberto Hollins MD [address] [place] [address] Hematology/Oncology 05/28/20 [place] [address] [place] [address] Specialty News Copy Editor Hematology/Oncology 05/28/20 Visual Coordinator Relationship Specialty Start Date End Date Asad Edwards DO [address] [place] [address] PCP - General Family Medicine 07/12/12 Cyn Gee MD, [address] [place] [address] Physician Radiation Oncology 03/20/20 Gilberto Hollins MD [address] [place] [address] Hematology/Oncology 05/28/20 [place] [address] [place] [address] Specialty News Copy Editor Hematology/Oncology 05/28/20 Visual Coordinator Relationship Specialty Start Date End Date Asad Edwadrs DO [address] [place] [address] PCP - General Family Medicine 07/12/12 Cyn Gee MD, [address] [place], [place] [id number] Physician Radiation Oncology 03/20/20 Gilberto Hollins MD [address] [place] [address] Hematology/Oncology 05/28/20 [place] [address] [place] [address] Specialty News Copy Editor Hematology/Oncology 05/28/20 Visual Coordinator Relationship Specialty Start Date End Date Asad Edwards DO [address] [place], [place] [id number] PCP - General Family Medicine 07/12/12 Cyn Gee MD, [address] [place], [place] [address] [phone] Physician Radiation Oncology 03/20/20 Gilberto Hollins MD [address] [place] [address] Hematology/Oncology 05/28/20 [place] [address] [place] [address] Specialty News Copy Editor Hematology/Oncology 05/28/20 Visual Coordinator Relationship Specialty Start Date End Date Asad Edwards DO [address] [place] [address] PCP - General Family Medicine 07/12/12 Cyn Gee MD, [address] [place] [address] Physician Radiation Oncology 03/20/20 Gilberto Hollins MD [address] [place] [address] Hematology/Oncology 05/28/20 [place] [address] [place] [address] Specialty News Copy Editor Hematology/Oncology 05/28/20 Visual Coordinator Relationship Specialty Start Date End Date Asad Edwards DO [address] [place], [place] [address] PCP - General Family Medicine 07/12/12 Cyn Gee MD, [address] [place] [address] Physician Radiation Oncology 03/20/20 Gilberto Hollins MD [address] [place] [address] Hematology/Oncology 05/28/20 [place] [address] [place] [address] Specialty News Copy Editor Hematology/Oncology 05/28/20 Visual Coordinator Relationship Specialty Start Date End Date Asad Edwards DO [address] [place] [address] PCP - General Family Medicine 07/12/12 Cyn Gee MD, [address] [facility] [place] [address] Physician Radiation Oncology 03/20/20 Gilberto Hollins MD [address] [place], [place] [id number] Hematology/Oncology 05/28/20 [place] [address] [place] [address] Specialty News Copy Editor Hematology/Oncology 05/28/20 Visual Coordinator Relationship Specialty Start Date End Date Asad Edwards DO [address] [place] [address] PCP - General Family Medicine 07/12/12 Cyn Gee MD, [address] [place] [address] Physician Radiation Oncology 03/20/20 Gilberto Hollins MD [address] [place], [place] [id number] Hematology/Oncology 05/28/20 [place] [address] [place] [address] Specialty News Copy Editor Hematology/Oncology 05/28/20 Visual Coordinator Relationship Specialty Start Date End Date Asad Edwards DO [address] [place] [address] PCP - General Family Medicine 07/12/12 Cyn Gee MD, [address] [place] [address] Physician Radiation Oncology 03/20/20 Gilberto Hollins MD [address] [place], [place] [id number] Hematology/Oncology 05/28/20 [place] [address] [place] [address] Specialty News Copy Editor Hematology/Oncology 05/28/20 Visual Coordinator Relationship Specialty Start Date End Date Asad Edwards DO [address] [place] [address] PCP - General Family Medicine 07/12/12 Cyn Gee MD, MD [address] [place] [address] Physician Radiation Oncology 03/20/20 Gilberto Hollins MD [address] [place] [address] Hematology/Oncology 05/28/20 [place] [address] [place] [address] Specialty News Copy Editor Hematology/Oncology 05/28/20 Visual Coordinator Relationship Specialty Start Date End Date Asad Edwards DO [address] [place], [place] [address] PCP - General Family Medicine 07/12/12 Cyn Gee MD, [address] [place], [place] [address] Physician Radiation Oncology 03/20/20 Gilberto Hollins MD [address] [place], [place] [id number] Hematology/Oncology 05/28/20 [place] [address] [place] [address] Specialty News Copy Editor Hematology/Oncology 05/28/20 Reason for Visit (unrecogniz ed section and content) Specialty Diagnoses / Procedures Referred By Elsie t Referred To Contact Physical Therapy / PHYSICAL THERAPY Diagnoses Achilles tendinitis of right lower extremity [M76.61] Procedures [place] [address] [place] [address] Merle Edwards, PT [address] [place] [address] Referral ID Status Reason Start Date Expiration Date V isits Requested Visits Authorized [id number] Authorized 10/10/2020 10/09/2021 20 20 Reason Onset Date Comments Refill Request 08/12/2021 Reason Comments Patient Question Reason Comments Ankle Injury right, x wednesday Reason Comments Established Patient Pain Reason Onset Date Comments Refill Request 10/17/2021 Reason Comments Patient Question Mychart message daniels gejoshua to NADINE leach JG Reason Comments Refill Request Reason Comments Sinusitis Reason Comments Radiology US Specialty Diagnoses / Procedures Referred By Contac t Referred To Contact US IMAGING Diagnoses Family history of abdominal aortic aneurysm (AAA) Procedures US SCREENING FOR AAA (2017) US ABDOMINAL AORTA REAL TIME SCREEN STUDY AAA Noemí Roa APRN.PAID SEARCH MARKETING STRATEGIST [address] [place] [address] Us Imaging Referral ID Status Reason Start Date Expiration Date V isits Requested Visits Authorized [id number] Closed Auto-Generate d Referral 12/25/2021 01/24/2023 1 1 Reason Comments Itching Reason Comments Cancer Patient Support Psychotherapy Evaluation (DX Interview) Reason Comments Arthritis Bilateral hands, lef t hand pinky finger dislocated Reason Comments Cough C/O COUGH, FATIGUE, BILAT EARS PAIN, SORE THROAT X 5 DAYS Reason Onset Date Comments Refill Request 03/02/2022 Reason Onset Date Comments Refill Request 05/22/2022 Reason Comments Established Patient Reason Comments Radiology Mammogram Specialty Diagnoses / Procedures Referred By Contac t Referred To Contact BR IMAGING Diagnoses Encounter for screening mammogram for malignant neoplasm of breast Procedures ANNETTE SCREENING W CAMI SCREENING DIGITAL BREAST TOMOSYNTHESIS BI SCREENING MAMMOGRAPHY BI 2-VIEW BREAST INC CAD Maco Anders MD [address] [place] [address] Br [facility] [address] [place] [address] Referral ID Status Reason Start Date Expiration Date V isits Requested Visits Authorized [id number] Closed Auto-Generate d Referral 04/06/2022 12/06/2022 1 1 Specialty Diagnoses / Procedures Referred By Contac t Referred To Contact Diagnoses History of left breast cancer Procedures CONSULT TO MEDICAL GENETICS - CANCER MEDICAL GENETICS COUNSELING EACH 30 MINUTES Donna Terjo, TEAGAN.PAID SEARCH MARKETING STRATEGIST [address] [place] [id number] [facility] [address] [place] [id number] Referral ID Status Reason Start Date Expiration Date Visits Requested Visits Authorized [id number] Pending Review PCP Requested Referral Auto-Generate d Referral 05/05/2022 05/05/2023 1 1 Reason Comments Results Reason Comments Appointment Reason Onset Date Comments Refill Request 08/10/2022 Reason Onset Date Comments Refill Request 09/27/2022 Reason Comments Sinus Problem Reason Onset Date Comments Refill Request 10/27/2022 Reason Comments Viral Syndrome Reason Comments Vaginal Problem Dysuria Reason Comments Established Patient Follow Up Pain Reason Comments Radio Gen A21 Specialty Diagnoses / Procedures Referred By Contac t Referred To Contact XR IMAGING Diagnoses Pain Procedures XR ANKLE GENERAL 3V AP/LAT/OBL RIGHT RADEX ANKLE COMPLETE MINIMUM 3 VIEWS Wyatt Sommers MD [address] [place] [address] Xr Imaging [id number] Referral ID Status Reason Start Date Expiration Date V isits Requested Visits Authorized [id number] Closed Auto-Generate d Referral 12/23/2022 01/22/2024 1 1 Reason Comments New Flat feet Reason Comments Surgical Follow Up Reason Comments Yearly Exam FOR RECORDS PERTAINING TO PATIENTS WHO ARE OR HAVE BEEN ENROLLED IN A CHEMICAL DEPENDENCY/SUBSTANCEABUSE PROGRAM, SOME INFORMATION MAY BE OMITTED. This clinical summary was aggregated from multiple sources. Caution should be exercised in using it in the provision of clinical care. This summary normalizes information from multiple sources, and as a consequence, information in this document may materially change the coding, format and clinical context of patient data. In addition, data may be omitted in some cases. CLINICAL DECISIONS SHOULD BE BASED ON THE PRIMARY CLINICAL RECORDS. [employer] provides no warranty or guarantee of the accuracy or completeness of information in this document.
[2023-04-14 17:17] LABS: Troponin-I HS 10 pg/mL (3.0-54.0)
[2023-04-14 17:40] LABS: D-Dimer Quantitative (DVT/PE) < 0.27 FEU/ug/m (0.27-0.49)
== END | disposition home or self-care (01) ==
LOC: LABSPEC 16:51
PROVIDERS: PCP Student in an Organized Health Care Education/Training Program; Referring Provider Nurse Practitioner Family; Visit Provider Nurse Practitioner Family
DX: R07.89 Other chest pain (principal); M54.9 Dorsalgia, unspecified; R68.84 Jaw pain; R20.9 Unspecified disturbances of skin sensation; I10 Essential (primary) hypertension; R51.9 Headache, unspecified; H53.9 Unspecified visual disturbance
CPT/HCPCS: 84484; 85379